=== PATIENT | female | born 1955 | race Caucasian/White ===

== ENCOUNTER 2017-01-04 20:22 | Emergency (ER) | payer SELFPAY ==
[2017-01-04 20:34] VITALS: BP 143/86; BMI 42.4
--- NOTE | 2017-01-04 21:21 | DR.GENAD ---
HPI - PCP Primary Care Physician: NFD - Complaint/Symptoms Chief Complaint:: "Two weeks ago I started having a little pain on my elbow. It has been hurting every since. It has gotten red since yesterday. I took a needle and tried to draw out some fluid because I thought it was a little swollen." - Nurses notes reviewed Nurses Notes Review: Yes - Source History Provided: Patient - Mode of Arrival Mode of Arrival: Ambulatory - Timing Onset of Chief Complaint: 12/21/16 Came on: Gradually - Duration Duration: Constant How lon Duration: Days - Location Location: left elbow - Severity Severity: Moderate - Modifying Factors Worsens:: pressure - Associated Signs and Symptoms Associated Signs and Symptoms: redness - Other History Other History: probable gout undignosed PMH - PMH Past Medical History: No Past Surgical History: Yes Surgical History: - Family History History of Family Medical Conditions: Yes Family Medical History: Diabetes Mellitus, [place], Hypertension - Social History Does patient currently use any type of tobacco product: No Have you used tobacco products in the last 12 months: No Type of Tobacco Use: None Does any household member use tobacco: No Alcohol Use: None Do you use any recreational Drugs:: No Lives With: Alone Lives Where: Home - infectious screening In the last 2 months have you had wt loss of >10#?: NO Have you had fever, night sweats or hemotysis?: No Have you traveled outside the country in the last 6 months?: No Isolation: Standard ROS - Review of Systems Constitutional: No Symptoms Reported Eyes: No Symptoms Reported ENTM: No Symptoms Reported Respiratoy: No Symptoms Reported Cardiovascular: No Symptoms Reported Gastrointestinal/Abdominal: No Symptoms Reported Genitourinary: No Symptoms Reported Neurological: No Symptoms Reported Musculoskeletal: Elbow (right elbow redness) Integumentary: No Symptoms Reported Hematologic/Lymphatic: No Symptoms Reported Endocrine: No Symptoms Reported Psychiatric: No Symptoms Reported All Other Systems: Reviewed and Negative PE - Vital Signs Vitals: Temperature 98.6 F Pulse Rate 104 Respiratory Rate 18 Blood Pressure 143/86 O2 Sat by Pulse Oximetry 94 - General Limitations: No Limitations General Appearance: Alert, In No Apparent Distress - Head Head Exam: Normal Inspection - Eyes Eye exam: Normal Appearance, EOMI. negative: Scleral Icterus, Conjunctival Injection - Neck Neck Exam: Normal Inspection, Full ROM, Trachea Midline - Respiratory Respiratory Exam: negative: Accessory Muscle Use, Respiratory Distress - Cardiovascular Cardiovascular Exam: Regular Rate - Abdominal Exam Abdominal Exam: Distention (obesity) - Extremities Extremities Exam: Full ROM, Tenderness (right elbow reness mild swelling). negative: Normal Inspection - Back Back Exam: Normal Inspection - Neurologic Neurological Exam: Alert, Oriented X3, CN II-XII Intact - Psychiatric Psychiatric Exam: Normal Mood - Skin Skin Exam: Intact. negative: Normal Color (redness in elbow) ROR - Labs Reviewed Result Diagrams: 01/04/17 21:36 Laboratory: WBC 14.2 X10^3/uL (3.6-10.0) H 01/04/17 21:36 RBC 5.44 X10^6/uL (3.5-5.4) H 01/04/17 21:36 Hgb 14.9 g/dL (12.0-16.0) 01/04/17 21:36 Hct 45.4 % (36.0-47.0) 01/04/17 21:36 MCV 83.3 fL (80.0-100.0) 01/04/17 21:36 MCH 27.4 pg (27.0-34.0) 01/04/17 21:36 MCHC 32.9 g/dL (33.0-35.0) L 01/04/17 21:36 RDW 14.5 % (11.6-16.5) 01/04/17 21:36 Plt Count 356 X10^3/uL (150.0-450.0) 01/04/17 21:36 MPV 8.9 fL (7.4-11.0) 01/04/17 21:36 Neut % 80.7 % (42.0-75.0) H 01/04/17 21:36 Lymph % 10.4 % (21.0-51.0) L 01/04/17 21:36 [place] % 7.1 % (0.0-13.0) 01/04/17 21:36 Eos % 1.1 % (0.9-2.9) 01/04/17 21:36 Baso % 0.7 % (0.2-1.0) 01/04/17 21:36 Neut # 11.5 x10^3/uL (2.2-4.8) H 01/04/17 21:36 Lymph # 1.5 X10^3/uL (1.3-2.9) 01/04/17 21:36 [place] # 1.0 x10^3/uL (0.3-0.8) H 01/04/17 21:36 Eos # 0.2 x10^3/uL (0.0-0.2) 01/04/17 21:36 Baso # 0.1 X10^3/uL (0.0-0.1) 01/04/17 21:36 Absolute Nucleated RBC 0.1 /100WBC 01/04/17 21:36 - Diagnosis Discharge Problem: Cellulitis Qualifiers: Site of cellulitis: other site Qualified Code(s): L03.818 - Cellulitis of other sites - Discharge Plan Condition: Stable Prescriptions: Cephalexin [Keflex Cap 500 mg] 500 mg PO TID #30 cap Indomethacin [Indocin Cap 25 mg] 25 mg PO TID #30 cap - Follow ups/Referrals Follow ups/Referrals: NFD,None [Primary Care Provider] - 3 days - Instructions
[2017-01-04] MEDS ORDERED: TORADOL 60 MG VIAL IM ONE (21:28)
[2017-01-04] MEDS ORDERED: TORADOL 60 MG VIAL ONE (21:33)
[2017-01-04 21:45] LABS: BASOPHILS # (AUTO) 0.1 X10^3/uL (0.0-0.1); BASOPHILS % (AUTO) 0.7 % (0.2-1.0); EOSINOPHILS # (AUTO) 0.2 x10^3/uL (0.0-0.2); EOSINOPHILS % (AUTO) 1.1 % (0.9-2.9); HEMATOCRIT 45.4 % (36.0-47.0); HEMOGLOBIN 14.9 g/dL (12.0-16.0); LYMPHOCYTES # (AUTO) 1.5 X10^3/uL (1.3-2.9); LYMPHOCYTES % (AUTO) 10.4 % (21.0-51.0); MEAN CORPUSCULAR HEMOGLOBIN 27.4 pg (27.0-34.0); MEAN CORPUSCULAR HGB CONC 32.9 g/dL (33.0-35.0); MEAN CORPUSCULAR VOLUME 83.3 fL (80.0-100.0); MEAN PLATELET VOLUME 8.9 fL (7.4-11.0); MONOCYTES % (AUTO) 7.1 % (0.0-13.0); NEUTROPHILS # (AUTO) 11.5 x10^3/uL (2.2-4.8); NEUTROPHILS % (AUTO) 80.7 % (42.0-75.0); PLATELET COUNT 356 X10^3/uL (150.0-450.0); RED BLOOD COUNT 5.44 X10^6/uL (3.5-5.4); RED CELL DISTRIBUTION WIDTH 14.5 % (11.6-16.5); WHITE BLOOD COUNT 14.2 X10^3/uL (3.6-10.0)
[2017-01-04] MEDS ORDERED: ROCEPHIN VIAL 1 GM IM ONE (22:14)
[2017-01-04] MEDS ORDERED: ROCEPHIN VIAL 1 GM ONE (22:19)
== END 2017-01-04 22:33 | disposition home or self-care (01) ==
LOC: ER 20:41
DX: L03.818 Cellulitis of other sites (principal)
CPT/HCPCS: 36415; 85025; 96372; 99282; J0696; J1885

== ENCOUNTER 2017-01-15 16:39 | Emergency (ER) | payer SELFPAY ==
[2017-01-15 16:45] VITALS: BP 134/97
[2017-01-15 16:49] VITALS: BMI 43.7
--- NOTE | 2017-01-15 17:12 | DR.GENAD ---
HPI - PCP Primary Care Physician: agapito - HPI Comment HPI Comment: PATIENT TOOK KEFLEX AND INDOCIN FOR 10 DAYS WHEN RT ELBOW CELLULITIS WAS DIAGNESS. IMPROVE BUT SWELLING REMAIN. STARTED HURTING AND GETTING RED AGAIN. - Complaint/Symptoms Chief Complaint Doctors Comments: SWELLING, PAIN AND REDNESS RIGHT ELBOW. Chief Complaint:: patient was seen in the er 10 days ago for right elbow cellulitis. she stated the elbow looks better but she was told to follow up and she has no doctor and she does not have insurance. - Nurses notes reviewed Nurses Notes Review: Yes - Source History Provided: Patient - Mode of Arrival Mode of Arrival: Ambulatory - Timing Onset of Chief Complaint: 01/04/17 Came on: Gradually - Duration Duration: Constant Duration: Days - Severity Severity: Moderate PMH - PMH Past Medical History: No Past Surgical History: Yes Surgical History: - Family History History of Family Medical Conditions: Yes Family Medical History: Diabetes Mellitus, [place], Hypertension - Social History Does patient currently use any type of tobacco product: No Have you used tobacco products in the last 12 months: No Type of Tobacco Use: None Does any household member use tobacco: No Alcohol Use: None Do you use any recreational Drugs:: No Lives With: Family Lives Where: Home - infectious screening In the last 2 months have you had wt loss of >10#?: NO Have you had fever, night sweats or hemotysis?: No Have you traveled outside the country in the last 6 months?: No Isolation: Standard ROS - Review of Systems Constitutional: No Symptoms Reported Eyes: No Symptoms Reported ENTM: No Symptoms Reported Respiratoy: No Symptoms Reported Cardiovascular: No Symptoms Reported Gastrointestinal/Abdominal: No Symptoms Reported Genitourinary: No Symptoms Reported Neurological: No Symptoms Reported Musculoskeletal: Right, Elbow Integumentary: Other (REDNESS AND SWELLING RT ELBOW) Hematologic/Lymphatic: No Symptoms Reported Endocrine: No Symptoms Reported All Other Systems: Reviewed and Negative PE - Vital Signs Vitals: Temperature 98.7 F Pulse Rate 98 Respiratory Rate 18 Blood Pressure 134/97 O2 Sat by Pulse Oximetry 96 - General Limitations: No Limitations General Appearance: Alert - Head Head Exam: Normal Inspection - Eyes Eye exam: Normal Appearance - ENT ENT Exam: Normal External Ear Exam External Ear Exam: Normal External Inspection TM/Canal Exam: Bilateral Normal Nose Exam: Normal Nose Exam Mouth Exam: Normal Inspection Throat Exam: Normal Inspection - Neck Neck Exam: Normal Inspection - Chest Chest Inspection: Symmetric Chest Wall Rise - Respiratory Respiratory Exam: Normal Lung Sounds Bilat Respiratory Exam: Bilateral Clear to Auscultation - Cardiovascular Cardiovascular Exam: Regular Rate, Normal Rhythm, Normal Heart Sounds - Abdominal Exam Abdominal Exam: Normal Inspection - Extremities Extremities Exam: Tenderness (RT ELBOW), Joint Swelling (RT ELBOW) - Back Back Exam: Normal Inspection - Neurologic Neurological Exam: Alert, Oriented X3 - Psychiatric Psychiatric Exam: Normal Affect, Normal Mood - Skin Skin Exam: Normal Color MDM - Differential Diagnosis Differential Diagnosis: CELLULITIS, ABSCES Course - Treatment Treatment: SEE ORDERS - Education/Counseling Education/Counseling: Patient, Education Educated On: Diagnosis, Needs for Follow Up ROR - Labs Reviewed Laboratory: 01/15/17 17:56 Elbow - Right Gram Stain - Final Procedures - Incision and Drainage Progress: TRY TO ASPIRATE RIGHT S/C CYST/PUS WITH LITTLE ASPIRATE. SMALL LAC MADE AND 2CC PUS SQUEEZED OUT. DRESSING APPLIED. - Diagnosis Discharge Problem: Cellulitis of elbow, Abscess - Discharge Plan Disposition: HOME, SELF-CARE Condition: Stable Prescriptions: Indomethacin [Indocin Cap 25 mg] 25 mg PO TID #30 cap Sulfamethoxazole-Trimethoprim [BACTRIM DS TAB 800/160 MG *] 1 tab PO BID #20 tab - Follow ups/Referrals Follow ups/Referrals: NFD,None [Primary Care Provider] - 3 days JONO BLACK [STAFF PHYSICIAN] - 3 days - Instructions Instructions: Cellulitis, Abscess, [id number] Additional Instructions: RETURN TO ED IF WORSE.
[2017-01-15] MEDS ORDERED: BACTRIM DS TAB PO ONE ×2 (18:02→18:09)
[2017-01-15] MEDS ORDERED: INDOCIN CAP 25 MG PO ONE ×2 (18:02→18:09)
== END 2017-01-15 18:11 | disposition home or self-care (01) ==
LOC: ER 16:49
DX: L03.113 Cellulitis of right upper limb (principal); L02.413 Cutaneous abscess of right upper limb
CPT/HCPCS: 87070; 87075; 87205; 99282

== ENCOUNTER 2017-02-11 13:37 | Emergency (ER) | payer SELFPAY ==
[2017-02-11 13:45] VITALS: BP 155/95; BMI 42.4
--- NOTE | 2017-02-11 15:04 | DR.GENAD ---
HPI - PCP Primary Care Physician: nfd - Complaint/Symptoms Chief Complaint Doctors Comments: Patient has boston nodule onf the 4th digit of the right hand, tender but non fluctuant. Chief Complaint:: abcess on her right finger. been there a week - Source History Provided: Patient - Mode of Arrival Mode of Arrival: Ambulatory - Timing Onset of Chief Complaint: 02/04/17 PMH - PMH Past Medical History: No Past Surgical History: Yes Surgical History: - Family History History of Family Medical Conditions: Yes Family Medical History: Diabetes Mellitus, [place], Hypertension - Social History Does patient currently use any type of tobacco product: No Have you used tobacco products in the last 12 months: No Type of Tobacco Use: None Does any household member use tobacco: No Alcohol Use: None Do you use any recreational Drugs:: No Lives With: Alone Lives Where: Home - infectious screening In the last 2 months have you had wt loss of >10#?: NO Have you had fever, night sweats or hemotysis?: No Have you traveled outside the country in the last 6 months?: No Isolation: Standard ROS - Review of Systems Eyes: No Symptoms Reported ENTM: No Symptoms Reported Respiratoy: No Symptoms Reported Cardiovascular: No Symptoms Reported Gastrointestinal/Abdominal: No Symptoms Reported Genitourinary: No Symptoms Reported Neurological: No Symptoms Reported Musculoskeletal: No Symptoms Reported Integumentary: Lesions (4th digit of right hand) Hematologic/Lymphatic: No Symptoms Reported Endocrine: No Symptoms Reported Psychiatric: No Symptoms Reported All Other Systems: Reviewed and Negative PE - Vital Signs Vitals: Temperature 98.6 F Pulse Rate 95 Respiratory Rate 18 Blood Pressure 155/95 O2 Sat by Pulse Oximetry 99 - General Limitations: No Limitations General Appearance: Alert - Head Head Exam: Normal Inspection, Atraumatic - Eyes Eye exam: Normal Appearance, PERRL, EOMI - ENT ENT Exam: Normal Exam External Ear Exam: Normal External Inspection TM/Canal Exam: Bilateral Normal Nose Exam: Normal Nose Exam Mouth Exam: Normal Inspection Throat Exam: Normal Inspection - Neck Neck Exam: Normal Inspection - Respiratory Respiratory Exam: Normal Lung Sounds Bilat Respiratory Exam: Bilateral Clear to Auscultation - Cardiovascular Cardiovascular Exam: Regular Rate, Normal Rhythm - Abdominal Exam Abdominal Exam: Normal Inspection Abdominal Tenderness: negative: RUQ, RLQ, LUQ, LLQ, Epigastrium, Suprapubic, Diffuse, Mild, Moderate, Severe, Other - Extremities Extremities Exam: Other (4th digit of right hand a tender non fluctuant nodele x2) - Back Back Exam: Normal Inspection - Neurologic Neurological Exam: Alert, Oriented X3 - Skin Skin Exam: Dry, Intact - Diagnosis Discharge Problem: Cellulitis Qualifiers: Site of cellulitis: other site Qualified Code(s): L03.818 - Cellulitis of other sites - Discharge Plan Condition: Stable - Follow ups/Referrals Follow ups/Referrals: NFD,None [Primary Care Provider] - 3 days - Instructions
== END 2017-02-11 15:39 | disposition home or self-care (01) ==
LOC: ER 14:18
DX: L03.818 Cellulitis of other sites (principal)
CPT/HCPCS: 99281; 99282

== ENCOUNTER 2017-02-21 11:36 | Emergency (ER) | payer SELFPAY ==
[2017-02-21 11:41] VITALS: BP 156/96; BMI 42.4
--- NOTE | 2017-02-21 12:21 | DR.GENAD ---
HPI - PCP Primary Care Physician: PHILIP - HPI Comment HPI Comment: HISTORY BELOW. - Complaint/Symptoms Chief Complaint Doctors Comments: PAIN AND SWELLING RIGHT PINKY FINGER FOR FIVE DAYS. TREATED FOR INFECTION FOR TWENTY DAYS WITH ANTIBIOIC. STILL SWOLLEN, RED AND PAINFULL. NO TRAINAGE. HAVE BEING TRATED FOR GOUT IN THE PAST. Chief Complaint:: PATIENT HAS PAIN AND SWELLING TO HER RIGHT PINKY FINGER. - Nurses notes reviewed Nurses Notes Review: Yes - Source History Provided: Patient - Mode of Arrival Mode of Arrival: Ambulatory - Timing Onset of Chief Complaint: 02/07/17 Came on: Gradually - Duration Duration: Constant Duration: Weeks - Severity Severity: Moderate PMH - PMH Past Medical History: No Past Surgical History: Yes Surgical History: - Family History History of Family Medical Conditions: Yes Family Medical History: Diabetes Mellitus, [place], Hypertension - Social History Does patient currently use any type of tobacco product: No Have you used tobacco products in the last 12 months: No Type of Tobacco Use: None Alcohol Use: Rarely Do you use any recreational Drugs:: No Lives With: Family Lives Where: Home - infectious screening In the last 2 months have you had wt loss of >10#?: NO Have you had fever, night sweats or hemotysis?: No Have you traveled outside the country in the last 6 months?: No Isolation: Standard ROS - Review of Systems Constitutional: No Symptoms Reported Eyes: No Symptoms Reported ENTM: No Symptoms Reported Respiratoy: No Symptoms Reported Cardiovascular: No Symptoms Reported Gastrointestinal/Abdominal: No Symptoms Reported Genitourinary: No Symptoms Reported Neurological: No Symptoms Reported Musculoskeletal: Right, Hand Integumentary: No Symptoms Reported Hematologic/Lymphatic: No Symptoms Reported Endocrine: No Symptoms Reported All Other Systems: Reviewed and Negative PE - Vital Signs Vitals: Pulse Rate 75 Respiratory Rate 20 Blood Pressure 156/96 O2 Sat by Pulse Oximetry 96 - General Limitations: No Limitations General Appearance: Alert - Head Head Exam: Normal Inspection - Eyes Eye exam: Normal Appearance - ENT ENT Exam: Normal External Ear Exam Mouth Exam: Normal Inspection Throat Exam: Normal Inspection - Neck Neck Exam: Trachea Midline - Chest Chest Inspection: Symmetric Chest Wall Rise - Respiratory Respiratory Exam: Normal Lung Sounds Bilat Respiratory Exam: Bilateral Clear to Auscultation - Cardiovascular Cardiovascular Exam: Regular Rate, Normal Rhythm, Normal Heart Sounds - Abdominal Exam Abdominal Exam: Normal Bowel Sounds, Soft. negative: Tenderness - Extremities Extremities Exam: Tenderness (PIP 5TH RT FINGER RED, SWOLLEN AND TENDER.) - Back Back Exam: Normal Inspection - Neurologic Neurological Exam: Alert, Oriented X3 - Psychiatric Psychiatric Exam: Normal Affect, Normal Mood - Skin Skin Exam: Normal Color MDM - Differential Diagnosis Differential Diagnosis: RT FINGRT INFECTION, GOUT, ARTHRTITIS Course - Treatment Treatment: SEE ORDERS. - Education/Counseling Education/Counseling: Patient, Education Educated On: Treatment, Diagnosis, Needs for Follow Up ROR - Labs Reviewed Laboratory Results Reviewed?: Yes Result Diagrams: 02/21/17 13:11 02/21/17 13:11 Laboratory: 02/21/17 14:10 Finger - Right Pinky Gram Stain - Final WBC 10.1 X10^3/uL (3.6-10.0) H 02/21/17 13:11 RBC 5.75 X10^6/uL (3.5-5.4) H 02/21/17 13:11 Hgb 15.9 g/dL (12.0-16.0) 02/21/17 13:11 Hct 47.0 % (36.0-47.0) 02/21/17 13:11 MCV 81.8 fL (80.0-100.0) 02/21/17 13:11 MCH 27.6 pg (27.0-34.0) 02/21/17 13:11 MCHC 33.7 g/dL (33.0-35.0) 02/21/17 13:11 RDW 14.7 % (11.6-16.5) 02/21/17 13:11 Plt Count 383 X10^3/uL (150.0-450.0) 02/21/17 13:11 MPV 8.7 fL (7.4-11.0) 02/21/17 13:11 Neut % 76.7 % (42.0-75.0) H 02/21/17 13:11 Lymph % 16.1 % (21.0-51.0) L 02/21/17 13:11 [place] % 4.8 % (0.0-13.0) 02/21/17 13:11 Eos % 1.5 % (0.9-2.9) 02/21/17 13:11 Baso % 0.9 % (0.2-1.0) 02/21/17 13:11 Neut # 7.7 x10^3/uL (2.2-4.8) H 02/21/17 13:11 Lymph # 1.6 X10^3/uL (1.3-2.9) 02/21/17 13:11 [place] # 0.5 x10^3/uL (0.3-0.8) 02/21/17 13:11 Eos # 0.2 x10^3/uL (0.0-0.2) 02/21/17 13:11 Baso # 0.1 X10^3/uL (0.0-0.1) 02/21/17 13:11 Absolute Nucleated RBC 0.0 /100WBC 02/21/17 13:11 Sodium 138 mmol/L (136-145) 02/21/17 13:11 Corrected Sodium 139 mmol/L (136-145) 02/21/17 13:11 Potassium 4.5 mmol/L (3.5-5.1) 02/21/17 13:11 Chloride 103 mmol/L (98-107) 02/21/17 13:11 Carbon Dioxide 23.4 mmol/L (21-32) 02/21/17 13:11 BUN 15 mg/dL (7-18) 02/21/17 13:11 Creatinine 0.97 mg/dL (0.55-1.02) 02/21/17 13:11 Est GFR (MDRD) Af Amer > 60 (>60) 02/21/17 13:11 Est GFR (MDRD) Non-Af > 60 (>60) 02/21/17 13:11 Glucose 129 mg/dL (65-99) H 02/21/17 13:11 Uric Acid 8.7 mg/dL (2.6-6.0) H 02/21/17 13:11 Calcium 8.9 mg/dL (8.5-10.1) 02/21/17 13:11 Corrected Calcium TNP 02/21/17 13:11 Total Bilirubin 0.30 mg/dL (0.2-1.0) 02/21/17 13:11 AST 15 Units/L (15-37) 02/21/17 13:11 ALT 33 Units/L (12-78) 02/21/17 13:11 Alkaline Phosphatase 95 Units/L (46-116) 02/21/17 13:11 Total Protein 8.0 g/dL (6.4-8.2) 02/21/17 13:11 Albumin 3.6 g/dL (3.4-5.0) 02/21/17 13:11 Globulin 4.4 g/dL (2.5-4.5) 02/21/17 13:11 Albumin/Globulin Ratio 0.8 Ratio (1.1-2.1) L 02/21/17 13:11 - XRAY XRAY Interpreted by: Radiologist XRAY Findings: DISCUSS REPORT WITH PATIENT. Procedures - Incision and Drainage I & D Procedure: betadine prep Progress: ASPIRATED PIP JOINT ON RT PINKY. NO PUS OR FLUID RECOVERED. - Diagnosis Discharge Problem: Sebaceous cyst of finger of right hand, Cellulitis of finger of right hand Gout Qualifiers: Gout site: hand Gout etiology: unspecified cause Chronicity: acute Laterality: right Qualified Code(s): M10.9 - Gout, unspecified - Discharge Plan Disposition: 01 HOME, SELF-CARE Condition: Stable Prescriptions: Doxycycline Hyclate 100 mg PO BID #20 tablet. Ibuprofen [Motrin Tab 800 mg] 800 mg PO Q8H PRN #20 tab PRN Reason: Pain/Inflammation Tramadol HCl 50 mg PO Q8H PRN #15 tablet PRN Reason: - Follow ups/Referrals Follow ups/Referrals: NFD,None [Primary Care Provider] - 3 days JONO BLACK [STAFF PHYSICIAN] - 3 days - Instructions Instructions: Fingertip Infection, Uric Acid Test Additional Instructions: RETURN TO ED IF WORSE.
[2017-02-21 13:22] LABS: BASOPHILS # (AUTO) 0.1 X10^3/uL (0.0-0.1); BASOPHILS % (AUTO) 0.9 % (0.2-1.0); EOSINOPHILS # (AUTO) 0.2 x10^3/uL (0.0-0.2); EOSINOPHILS % (AUTO) 1.5 % (0.9-2.9); HEMOGLOBIN 15.9 g/dL (12.0-16.0); LYMPHOCYTES # (AUTO) 1.6 X10^3/uL (1.3-2.9); LYMPHOCYTES % (AUTO) 16.1 % (21.0-51.0); MEAN CORPUSCULAR HEMOGLOBIN 27.6 pg (27.0-34.0); MEAN CORPUSCULAR HGB CONC 33.7 g/dL (33.0-35.0); MEAN CORPUSCULAR VOLUME 81.8 fL (80.0-100.0); MEAN PLATELET VOLUME 8.7 fL (7.4-11.0); MONOCYTES # (AUTO) 0.5 x10^3/uL (0.3-0.8); MONOCYTES % (AUTO) 4.8 % (0.0-13.0); NEUTROPHILS # (AUTO) 7.7 x10^3/uL (2.2-4.8); NEUTROPHILS % (AUTO) 76.7 % (42.0-75.0); PLATELET COUNT 383 X10^3/uL (150.0-450.0); RED BLOOD COUNT 5.75 X10^6/uL (3.5-5.4); RED CELL DISTRIBUTION WIDTH 14.7 % (11.6-16.5); WHITE BLOOD COUNT 10.1 X10^3/uL (3.6-10.0)
[2017-02-21 13:30] LABS: ALANINE AMINOTRANSFERASE 33 Units/L (12-78); ALBUMIN 3.6 g/dL (3.4-5.0); ALKALINE PHOSPHATASE 95 Units/L (46-116); ASPARTATE AMINO TRANSFERASE 15 Units/L (15-37); BLOOD UREA NITROGEN 15 mg/dL (7-18); CALCIUM 8.9 mg/dL (8.5-10.1); CARBON DIOXIDE 23.4 mmol/L (21-32); CHLORIDE 103 mmol/L (98-107); COR NA(FOR HYPERGLY) 139 mmol/L (136-145); CREATININE 0.97 mg/dL (0.55-1.02); GLUCOSE 129 mg/dL (65-99); SODIUM 138 mmol/L (136-145); URIC ACID 8.7 mg/dL (2.6-6.0); eGFR BLACK RACES > 60 (>60); eGFR NON BLACK RACES > 60 (>60)
--- NOTE | 2017-02-21 13:55 | RAD ---
HISTORY: Pain and swelling 5th finger, no trauma Study: Right hand three view Comparison: None Findings: Diffuse mild soft tissue swelling involves the 5th digit. No underlying fracture, lytic, or blastic lesion is identified. No underlying erosive arthritis is present. No radiopaque foreign body is iden tified within the soft tissues. The remainder of the bones and joints of the hand and wrist are inta ct and normally aligned. IMPRESSION: Diffuse mild soft tissue swelling 5th digit without visible underlying bone or joint abnormality or soft tissue foreign body Reported By:
[2017-02-21] MEDS ORDERED: XYLOCAINE 1 % (PLAIN) ONE (13:57)
[2017-02-21] MEDS ORDERED: ULTRAM PO ONE (14:27)
[2017-02-21] MEDS ORDERED: MOTRIN TAB 800 MG PO ONE ×2 (14:28→14:30)
[2017-02-21] MEDS ORDERED: ULTRAM ONE (14:31)
== END 2017-02-21 14:36 | disposition home or self-care (01) ==
LOC: ER 11:43
DX: L72.3 Sebaceous cyst (principal); L03.011 Cellulitis of right finger
CPT/HCPCS: 36415; 73130; 80053; 84550; 85025; 87070; 87075; 87205; 99282; 99283; J2001

== ENCOUNTER 2017-03-02 16:54 | Emergency (ER) | payer SELFPAY ==
[2017-03-02 17:06] VITALS: BMI 41.0
--- NOTE | 2017-03-02 17:22 | DR.EXTPAIN ---
HPI - Time seen Time seen: 17:30 - PCP Primary Care Physician: NFD - Complaint/Symptoms Chief Complaint:: PT HAS A SEBACIOUS CYST TO HER RIGHT PINKY AND CELLULITIS AND PT HAS BEEN ON 3 ABX AND SHE IS TAKING CIPRO NOW ,, Self Treatment fo Chief Complaint: PTS WOUND IS RED BUT PT STATES " ITS A LITTLE BETTER".. - Source History Provided: Patient - Mode of arrival Mode of Arrival: Ambulatory - Timing Onset of Chief Complaint: 01/31/17 PMH - PMH Past Medical History: No Past Surgical History: Yes Surgical History: Past Surgical History Comment: .. - Family History History of Family Medical Conditions: Yes Family Medical History: Diabetes Mellitus, [place], Hypertension - Social History Does patient currently use any type of tobacco product: No Have you used tobacco products in the last 12 months: No Type of Tobacco Use: None Does any household member use tobacco: No Alcohol Use: None Do you use any recreational Drugs:: No Lives With: Alone Lives Where: Home - infectious screening In the last 2 months have you had wt loss of >10#?: NO Have you had fever, night sweats or hemotysis?: No Have you traveled outside the country in the last 6 months?: No Isolation: Standard ROS - Review of Systems Eyes: No Symptoms Reported ENTM: No Symptoms Reported Respiratoy: No Symptoms Reported Cardiovascular: No Symptoms Reported Gastrointestinal/Abdominal: No Symptoms Reported Genitourinary: No Symptoms Reported Neurological: No Symptoms Reported Musculoskeletal: Other (cyst 5th digit right hand) Integumentary: No Symptoms Reported Hematologic/Lymphatic: No Symptoms Reported Endocrine: No Symptoms Reported Psychiatric: No Symptoms Reported PE - Vital Signs Vitals: Temperature 98.2 F Pulse Rate 96 Respiratory Rate 20 Blood Pressure 135/86 O2 Sat by Pulse Oximetry 100 - General General Appearance: Alert - Head Head Exam: Normal Inspection, Atraumatic - Eyes Eye exam: Normal Appearance, PERRL, EOMI - ENT ENT Exam: Normal Exam - Neck Neck Exam: Normal Inspection, Full ROM - Chest Chest Inspection: Normal Inspection - Respiratory Respiratory Exam: Normal Lung Sounds Bilat Respiratory Exam: Bilateral Clear to Auscultation - Cardiovascular Cardiovascular Exam: Regular Rate, Normal Rhythm - Abdominal Exam Abdominal Exam: Normal Inspection Abdominal Tenderness: negative: RUQ, RLQ, LUQ, LLQ, Epigastrium, Suprapubic, Diffuse, Mild, Moderate, Severe, Other - Extremities Extremities Exam: Normal Inspection - Upper Extremities Shoulder Exam: Normal Inspection, Full ROM Arm Exam: Normal Inspection Elbow Exam: Normal Inspection Forearm Exam: Normal Inspection Hand Exam: Normal Inspection Neuromotor Exam: Normal Exam Neurosensory Exam: Normal Exam Hand Tendon Exam: Flexor Digitorium Profundus (Location) Upper Ext. Vascular Exam: Capillary Refill, Radial Pulse - Lower Extremities Hip/Pelvis Exam: Normal Inspection, Full ROM Upper Leg Exam: Normal Inspection, Full ROM Knee Exam: Normal Inspection, Full ROM Lower Leg Exam: Normal Inspection Ankle Exam: Normal Inspection Foot/Toe Exam: Normal Inspection Neurovascular/Tendon Exam: Normal Capillary Refill Gait Exam: Observed and Normal - Back Back Exam: Normal Inspection - Neurological Neurological Exam: Alert, Oriented X3, CN II-XII Intact - Psychiatric Psychiatric Exam: Normal Affect - Skin Skin Exam: Warm, Dry, Intact - Diagnosis Discharge Problem: Cyst in hand - Discharge Plan Condition: Stable - Follow ups/Referrals Follow ups/Referrals: NFD,None [Primary Care Provider] - 3 days - Instructions
[2017-03-02 17:24] VITALS: BP 135/86
== END 2017-03-02 18:03 | disposition home or self-care (01) ==
LOC: ER 17:09
DX: L72.3 Sebaceous cyst (principal)
CPT/HCPCS: 99281; 99282